=== PATIENT | female | born 1970 | race Hispanic/Latino ===

== ENCOUNTER → 2016-04-14 | Outpatient (CLI) | payer OTHER ==
[~2016-04-14] VITALS: Ht 154.9 cm; Wt 74.6 kg
[~2016-04-14] MED LIST: AMOX-358 PO; CEPH-507 PO; CODE-54 PO; DICL500C PO; DOCU-143 PO; FRS325T PO; HYDR-3062 PO; HYDR-3583 PO; IBP800T PO; LEVO125T6 PO; PREN-52; SULF1TAB35 PO
--- NOTE | 2016-04-14 14:57 | Diagnostic Imaging Report ---
Bilateral breast ultrasound. TECHNIQUE: All four quadrants and the retroareolar region were examined on this study. COMPARISON: 02/16/2016. INDICATION: Masses seen on breast MRI from 03/31/2016. Large masses are noted in the lower aspect of the left breast and relatively small mass and 9 mm mass in the lower outer aspect of the right breast seen. FINDINGS: In the left breast centered around 4 o'clock zone 3 cm from the nipple, there is a large complex lobulated mass that has no internal vascularity. The tissue around it has increased Doppler flow. The internal content of these lesions appears to fluctuate with ultrasound probe pressure compatible with fluid content and is concerning for multiple abscesses. No definitive solid-enhancing mass is seen in the left breast. The complex collections measure collectively about 6.4 x 4.3 x 6.8 cm. The right breast demonstrates no definite underlying lesion. In the axilla on the left side, there is a 2.6 x 1.1 x 1.8 cm lymph node with preserved fatty hilum. This is likely reactive. IMPRESSION: 1. Left breast: Multiple large complex lesions centered around 4 o'clock zone, favored to be related to abscesses. 2. Right breast: Negative exam. The mass seen in the middle depth of the lower outer aspect of the right breast on MRI was suspicious and MRI-guided biopsy is recommended. The findings were discussed with Dr. Elise by Dr. Downey at time of dictation. ACR BI-RADS Category 4: Suspicious abnormality. Dictated by: Dictated on workstation # [id number]
[2016-04-14 15:30] VITALS: BP 131/96
== END ==
LOC: RAD 13:05
PROVIDERS: ATTEND Surgery
DX: N61.1 Abscess of the breast and nipple (principal); N63 Unspecified lump in breast
CPT/HCPCS: 87081

== ENCOUNTER 2016-04-15 07:59 | Day surgery (SDC) | payer OTHER ==
[~2016-04-15] VITALS: Ht 154.9 cm; Wt 74.6 kg
[~2016-04-15 07:59] MED LIST changes: -AMOX-358 PO; -CEPH-507 PO; -DOCU-143 PO; -HYDR-3062 PO; -SULF1TAB35 PO
[2016-04-15] MEDS: LACTATED RINGERS 1,000 ML IV PRN ×2 (08:15→10:40)
[2016-04-15 08:33] VITALS: BP 121/85
[2016-04-15] MEDS ORDERED: LACTATED RINGERS 1,000 ML IV PRN (08:44)
[2016-04-15] MEDS ORDERED: ceFAZolin 2 GM IV (SDC ONLY) 50 ML ONE (09:30)
[2016-04-15] MEDS ORDERED: LIDOCAINE PF 2% 10 ML (XYLOCAINE) AMP ONE (09:42)
[2016-04-15] MEDS ORDERED: LACTATED RINGERS 1,000 ML IV ONE ×2 (09:42→10:36)
[2016-04-15] MEDS ORDERED: proPOfol 200 MG/20 ML (DIPRIVAN) VIAL IV ONE (09:42)
[2016-04-15] MEDS ORDERED: ONDANSETRON 4 MG/2 ML (SDV) Z0FRAN ONE (09:42)
[2016-04-15] MEDS ORDERED: MIDAZOLAM 2 MG/2 ML (VERSED) VIAL ONE (09:42)
[2016-04-15] MEDS ORDERED: fentaNYL INJECTION 100 MCG/2 ML AMP ONE (09:43)
[2016-04-15] MEDS ORDERED: ceFAZolin 2GM/50 ML DEXTROSE (PREMIX) IV ONE (10:00)
[2016-04-15] MEDS ORDERED: DEXAMETHASONE PF 10 MG/ML (DECADRON) VIAL ONE (10:06)
[2016-04-15] MEDS ORDERED: BUPIVACAINE 0.5% 30 ML (SENSORCAINE) VIAL ONE (10:18)
[2016-04-15] MEDS ORDERED: LIDOCAINE 1% INJ 20 ML (XYLOCAINE) VIAL ONE (10:18)
[2016-04-15] MEDS ORDERED: SEVOFLURANE (ULTANE) 15 ML INHAL SOLN ONE (10:41)
--- NOTE | 2016-04-15 10:47 | Progress Note-Post Operative ---
Post-Operative Progess Note Pre-Operative Diagnosis L breast abscess Post-Operative Diagnosis same Post-Op Procedure Note Date of Procedure: Apr 15, 2016 Name of Procedure: incision and drainage left breast with biopsy Procedure Note/Findings see note Anesthesia Type general Estimated blood loss (mL): minimal Specimen(s) collected left breast mass, culture GAURANG YADAV DO Apr 15, 2016 10:47 am
[2016-04-15] MEDS ORDERED: HYDR-3062 PO (10:54)
[2016-04-15] MEDS ORDERED: SULF1TAB35 PO (10:54)
[2016-04-15] MEDS ORDERED: DOCU-143 PO (10:55)
[2016-04-15] MEDS ORDERED: CEPH-507 PO (10:55)
--- NOTE | 2016-04-15 10:57 | Discharge Inst-Simple/Standard ---
Discharge Inst-Standard Discharge Medications New, Converted or Re-Newed RX: RX on Chart Patient Instructions/Follow Up Plan of Care/Instructions/FU: Follow up with Dr. Elise on Monday. Bring your iodoform packing with you. Return to surgery center on monday and monday to have wound packed. Take medication as directed. Activity as Tolerated: No Discharge Diet: No Restrictions Other Inst to Patient Follow up Appt: Make appointment for om Monday. Instructions: No lifting greater than 10 pounds. No strenuous activity. May shower in 24 hours, no tub bath or soaking. Use incentive spirometer at home as directed. No Smoking Skin/Wound Care: Return to the surgery center to have wound packed on Monday and Monday. Symptoms to Report: Appetite Changes, Extremity Discoloration, Numbness/Tingling, Swelling Increased , Bleeding Excessive, Eyesight Changes, Pain Increased, Urine Color Change, Constipation(Persistent), Fever over 101 degree F, Pain/Pressure in chest, Urinating Difficulty, Cough Up/Vomit Blood, Heart Beat Irreg/Pounding, Pain/ Pressure in jaw, Vaginal Bleeding Increase, Cramps in feet or legs, Lightheadedness, Pain/Pressure in shoulder, Diarrhea(Persistent), Memory Changes Suddenly, Questions/Concerns, Weight gain consecutive days, Dizziness/ Fainting, Nausea/Vomiting, Shortness of Breath, Weight gain over 2 pounds If questions or concerns contact your physician Or seek help at emergency department. NHAN MATHEWS APRN Apr 15, 2016 10:57
[2016-04-15] MEDS ORDERED: ONDANSETRON 4 MG/2 ML (SDV) Z0FRAN IVP PRN (11:00)
[2016-04-15] MEDS ORDERED: MEPERIDINE (DEMEROL) INJ 50 MG/ML IVP PRN (11:00)
[2016-04-15] MEDS ORDERED: HYDROmorphone (DILAUDID) 2 MG/ML VIAL IVP PRN (11:00)
[2016-04-15] MEDS: morphine INJ 10 MG/ML 1ML (SYR OR VIAL) IVP PRN ×2 (11:10→11:15)
[2016-04-15 11:50] VITALS: BP 141/102
[2016-04-15] MEDS ORDERED: HYDROcodone/APAP 5 MG/325 MG (LORTAB) TAB PO ONE (12:00)
[2016-04-15 12:20] VITALS: BP 127/84
[2016-04-15 12:50] VITALS: BP 129/86
[2016-04-15 13:10] VITALS: BP 129/86
--- NOTE | 2016-04-17 11:47 | OPERATIVE REPORT ---
PROCEDURE PHYSICIAN: GAURANG YADAV DATE OF PROCEDURE: 04/15/2016 PREOPERATIVE DIAGNOSIS: Left breast abscess POSTOPERATIVE DIAGNOSIS: Left breast abscess. PROCEDURE: Incision and drainage of left breast with biopsy. SURGEON: Gosia. ARCHITECT IN TRAINING: Ramesh Leggett ANESTHESIA: General. ESTIMATED BLOOD LOSS: Minimal. COMPLICATIONS: None. INDICATIONS: The patient is a 45-year-old female who has been worked up for left breast mass. She previously has had normal mammogram and ultrasound. She still had a large palpable mass, therefore MRI was performed, which demonstrated suspicious mass in the left breast. It was recommended the patient to have repeat ultrasound with possible biopsy. The patient went in for repeat ultrasound demonstrating a multiloculated fluid collection in the left breast. I discussed with Dr. Downey all radiological findings and he feels this is a complex abscess. I discuss with the family and patient risk and benefits of incision and drainage and all radiological findings. They understand and wish to proceed with incision and drainage. Consent was signed on chart for the procedure. PROCEDURE: The patient was taken operating suite. She was prepped and draped in the sterile fashion. A surgical pause was performed. Just inferior to the areolar, over the mass a skin incision was made and a large amount of purulent material erupted. A culture was obtained. There were loculations which with cautery and blunt dissection, these loculations were broken up. There is still a significant amount of indurated tissue present within this area. Some areas of extreme hardness which biopsies were obtained. Hemostasis was achieved. Copious amounts of irrigation were used to irrigate the wound. The wound was then packed with iodoform gauze. The area was then washed dried and sterile bandage was applied. The patient tolerated procedure well without any complications. RECOMMENDATIONS: We will continue wound care. She will be placed on Bactrim and Keflex. We will await cultures to modify antibiotics. The patient with questionable lesion of the right breast as well which MRI biopsy is being arranged. Instructions were provided to the patient on how to further arrange this. Job ID: [id number] Dictated Date: 04/15/2016 11:08:55 Landing Man Date: 04/17/2016 11:37:18 / andi
== END 2016-04-15 13:10 | disposition home or self-care (01) ==
LOC: SDC 07:59
PROVIDERS: ATTEND Surgery
DX: N61.1 Abscess of the breast and nipple (principal)
CPT/HCPCS: 87070; 87075; 87205; 94664

== ENCOUNTER 2016-04-17 07:57 | Outpatient (RCR) | payer OTHER ==
--- OUTSIDE RECORDS SUMMARY | 2016-04-16 08:14 | XMS REPORT | Continuity of Care Document ---
Author Author [facility] Organization [facility] Address Unknown Phone Unavailable Care Team Providers Care Psychiatric Lpn Name Role Phone JAZMIN OCONNOR DO PCP Insurance Providers Payer Name Policy Number Subscriber Name Relationship Self Pay Pending [facility] Apprv [id number] Isai Interiano 18 Self / Same As Patient Advance Directives Directive Response Recorded Date/Time Advance Directives No 04/15/16 8:29am Health Care Power of Car Conditioner No 04/15/16 8:29am Organ Donor No 04/15/16 8:29am Resuscitation Status Full Code 04/15/16 8:29am Problems No problem information available. Medications Current Home Medications Medication Dose Units Route Directions Days/Qty Instructions Start Date Levothyroxine Sodium 125 Mcg 125 Mcg Oral Daily 04/14/16 Sulfamethoxazole/Trimethoprim 1 Each 1 Each Oral Twice A Day 20 Hydrocodone/Acetaminophen 1 Each 1 Each Oral [id number] as needed for Pain 30 04/15/16 Docusate Sodium 100 Mg 100 Mg Oral Twice A Day 60 04/15/16 Cephalexin 500 Mg 500 Mg Oral Three Times A Day 30 04/15/16 Past Home Medications Medication Directions Ordered Status Vit 15/Iron Cb/Fa/Dss 1 Each Tablet, 09/29/08 Discontinued Acetaminophen/Codeine Phosphate 1 Tab Tablet, 1 Tab Oral As Needed 10/08/08 Discontinued Ferrous Sulfate 325 Mg Tablet, 1 Tab Oral Twice A Day 09/25/11 Discontinued Ibuprofen 800 Mg Tablet, 1 Each Oral Three Times A Day as needed 09/25/11 Discontinued Dicloxacillin Sodium 500 Mg Capsule, 1 Each Oral Four Times Daily 11/07/11 Discontinued Acetaminophen/Hydrocodone Bitart 1 Tab Tab, 1 - 2 Ea Oral Q4hr Prn 11/07/11 Discontinued Social History Social History Problem Response Recorded Date/Time Alcohol Use Denies Use 04/15/2016 8:29am Recreational Drug Use No 04/15/2016 8:29am Recent Foreign Travel No 04/15/2016 8:32am Sexually Transmitted Disease No 04/15/2016 8:29am HIV/AIDS No 04/15/2016 8:29am Smoking Status Never a Smoker 04/15/2016 8:29am Recent Hopitalizations No 04/15/2016 8:29am Sexually Transmitted Disease No 04/15/2016 8:29am Query Response Start Date Stop Date Smoking Status Never a Smoker Hospital Discharge Instructions Patient Instructions Physician Instructions New, Converted or Re-Newed RX: RX on Chart Plan of Care/Instructions/FU: Follow up with Dr. Yadav on Monday. Bring your iodoform packing with you. Return to surgery center on monday and monday to have wound packed. Take medication as directed. Activity as Tolerated: No Discharge Diet: No Restrictions Other Inst to Patient Follow up Appt: Make appointment for om Monday. Instructions: No lifting greater than 10 pounds. No strenuous activity. May shower in 24 hours, no tub bath or soaking. Use incentive spirometer at home as directed. No Smoking Skin/Wound Care: Return to the surgery center to have wound packed on Monday and Monday. Symptoms to Report: Appetite Changes, Extremity Discoloration, Numbness/Tingling, Swelling Increased, Bleeding Excessive, Eyesight Changes, Pain Increased, Urine Color Change, Constipation(Persistent), Fever over 101 degree F, Pain/Pressure in chest, Urinating Difficulty, Cough Up/Vomit Blood, Heart Beat Irreg/Pounding, Pain/Pressure in jaw, Vaginal Bleeding Increase, Cramps in feet or legs, Lightheadedness, Pain/Pressure in shoulder, Diarrhea(Persistent), Memory Changes Suddenly, Questions/Concerns, Weight gain consecutive days, Dizziness/Fainting, Nausea/Vomiting, Shortness of Breath, Weight gain over 2 pounds If questions or concerns contact your physician Or seek help at emergency department. Care Plan Patient Instructions:: Follow up with Dr. Yadav on Monday. Bring your iodoform packing with you.Return to surgery center on monday and monday to have wound packed. Take medication as directed. Plan of Care Discharge Date 04/15/16 1:10pm Instructions/Education Provided ANESTHESIA INSTRUCTIONS POSTOP Prescriptions See Medication Section Functional Status No functional status results. Allergies, Adverse Reactions, Alerts No known allergies. Immunizations No immunization records. Vital Signs Acute Vital Signs Vital Response Date/Time Temperature (Fahrenheit) 98.1 degrees F (97.6 - 99.5) 04/15/2016 1:10pm Temperature (Calculated Celsius) 36.30316 degrees C (36.4 - 37.5) 04/15/2016 12:50pm Temperature Source Tympanic 04/15/2016 1:10pm Pulse Rate (adult) 115 bpm (60 - 90) 04/15/2016 1:10pm Respiratory Rate 16 bpm (12 - 24) 04/15/2016 1:10pm O2 Sat by Pulse Oximetry 94 % (88 - 100) 04/15/2016 1:10pm Blood Pressure 129/86 mm Hg 04/15/2016 1:10pm Blood Pressure Mean 97 mm Hg 04/15/2016 8:33am Pain Numeric Pain Scale 6 04/15/2016 1:10pm Pain Intensity 6 04/15/2016 12:50pm Height (Feet) 5 feet 04/15/2016 8:31am Height (Inches) 1.00 inches 04/15/2016 8:31am Height (Calculated Centimeters) 154.192402 cm 04/15/2016 8:31am Weight (Pounds) 164 pounds 04/15/2016 8:31am Weight (Ounces) 6.0 oz 04/15/2016 8:31am Weight (Calculated Grams) 83103.25 gm 04/15/2016 8:31am Weight (Calculated Kilograms) 74.233981 kilograms 04/15/2016 8:31am Calculated BMI 31.1 04/15/2016 8:31am Results No known relevant diagnostic tests, laboratory data and/or discharge summary. Procedures Procedure Status Date Provider(s) Incision and drainage Completed 04/15/16 GAURANG YADAV DO Encounters Encounter Location Arrival/Admit Date Discharge/Depart Date Attending Provider Departed Surgical Day [facility] 01/13/17 7:59am 1:10pm GAURANG YADAV DO Registered Clinic [facility] 04/14/16 1:05pm GAURANG YADAV DO Registered Clinic [facility] 03/31/16 10:17am GAURANG YADAV DO
[2016-04-16 08:31] VITALS: BP 122/76
[~2016-04-17] VITALS: Ht 154.9 cm; Wt 74.6 kg
[~2016-04-17 07:57] MED LIST changes: +CEPH-507 PO; +DOCU-143 PO; +HYDR-3062 PO; +SULF1TAB35 PO
[2016-04-17 08:15] VITALS: BP 116/81
[2016-05-05] MEDS ORDERED: AMOX-358 PO (11:10)
[2016-05-05] MEDS ORDERED: HYDR-3062 PO (11:10)
== END 2016-07-15 | disposition home or self-care (01) ==
LOC: SDC 07:57
PROVIDERS: ATTEND Surgery
DX: Z48.01 Encounter for change or removal of surgical wound dressing (principal); N61.1 Abscess of the breast and nipple
CPT/HCPCS: 99211

== ENCOUNTER 2016-05-04 15:55 | Outpatient (CLI) | payer OTHER ==
[~2016-05-04] VITALS: Ht 154.9 cm; Wt 74.6 kg
[~2016-05-04 15:55] MED LIST changes: -AMOX-358 PO
--- OUTSIDE RECORDS SUMMARY | 2016-05-04 15:57 | XMS REPORT | Continuity of Care Document ---
Author Author [facility] Organization [facility] Address Unknown Phone Unavailable Care Team Providers Care Tobacco Blender Name Role Phone JAZMIN OCONNOR DO PCP Insurance Providers Payer Name Policy Number Subscriber Name Relationship Self Pay Pending [facility] Apprv [id number] Isai Interiano 18 Self / Same As Patient Advance Directives Directive Response Recorded Date/Time Advance Directives No 04/15/16 8:29am Health Care Power of Wrapping Clerk No 04/15/16 8:29am Organ Donor No 04/15/16 8:29am Resuscitation Status Full Code 04/15/16 8:29am Problems No problem information available. Medications Current Home Medications Medication Dose Units Route Directions Days/Qty Instructions Start Date Levothyroxine Sodium 125 Mcg 125 Mcg Oral Daily 04/14/16 Sulfamethoxazole/Trimethoprim 1 Each 1 Each Oral Twice A Day 20 Hydrocodone/Acetaminophen 1 Each 1 Each Oral [id number] as needed for Pain 30 04/15/16 Docusate [...] - 99.5) 04/15/2016 1:10pm Temperature (Calculated Celsius) 36.65711 degrees C (36.4 - 37.5) 04/15/2016 12:50pm [...] 1.00 inches 04/15/2016 8:31am Height (Calculated Centimeters) 154.650457 cm 04/15/2016 8:31am Weight (Pounds) 164 pounds 04/15/2016 8:31am Weight (Ounces) 6.0 oz 04/15/2016 8:31am Weight (Calculated Grams) 66425.25 gm 04/15/2016 8:31am Weight (Calculated Kilograms) 74.812301 kilograms 04/15/2016 8:31am Calculated BMI 31.1 04/15/2016 8:31am Results No known relevant diagnostic tests, laboratory data and/or discharge summary. Procedures Procedure Status Date Provider(s) Incision and drainage Completed 04/15/16 GAURANG YADAV DO Encounters Encounter Location Arrival/Admit Date Discharge/Depart Date Attending Provider Departed Surgical Day Care [facility] 01/13/17 7:59am 1:10pm GAURANG YADAV DO Registered Clinic [facility] 04/14/16 1:05pm GAURANG YADAV DO Registered Clinic [facility] 03/31/16 10:17am GAURANG YADAV DO
[2016-05-05] MEDS ORDERED: HYDR-3062 PO (11:10)
[2016-05-05] MEDS ORDERED: AMOX-358 PO (11:10)
== END 2016-05-04 16:05 ==
LOC: PREOP 15:55
PROVIDERS: ATTEND Surgery
DX: Z01.818 Encounter for other preprocedural examination (principal); N61.1 Abscess of the breast and nipple

== ENCOUNTER → 2016-05-04 | Outpatient (CLI) | payer OTHER ==
[~2016-05-04] MED LIST changes: +AMOX-358 PO
--- OUTSIDE RECORDS SUMMARY | 2016-05-04 13:41 | XMS REPORT | Continuity of Care Document ---
Author Author [facility] Organization [facility] Address Unknown Phone Unavailable Care Team Providers Care Streaming Media Specialist Name Role Phone JAZMIN OCONNOR DO PCP Insurance Providers Payer Name Policy Number Subscriber Name Relationship Self Pay Pending [facility] Apprv [id number] Isai Interiano 18 Self / Same As Patient Advance Directives Directive Response Recorded Date/Time Advance Directives No 04/15/16 8:29am Health Care Power of Continuous Pickling Line Pickler No 04/15/16 8:29am Organ Donor No 04/15/16 8:29am Resuscitation Status Full Code 04/15/16 8:29am Problems No problem information available. Medications Current Home Medications Medication Dose Units Route Directions Days/Qty Instructions Start Date Levothyroxine Sodium 125 Mcg 125 Mcg Oral Daily 04/14/16 Sulfamethoxazole/Trimethoprim 1 Each 1 Each Oral Twice A Day 20 Hydrocodone/Acetaminophen 1 Each 1 Each Oral [id number] as needed for Pain 30 04/15/16 Docusate [...] - 99.5) 04/15/2016 1:10pm Temperature (Calculated Celsius) 36.00221 degrees C (36.4 - 37.5) 04/15/2016 12:50pm [...] 1.00 inches 04/15/2016 8:31am Height (Calculated Centimeters) 154.813474 cm 04/15/2016 8:31am Weight (Pounds) 164 pounds 04/15/2016 8:31am Weight (Ounces) 6.0 oz 04/15/2016 8:31am Weight (Calculated Grams) 55626.25 gm 04/15/2016 8:31am Weight (Calculated Kilograms) 74.008251 kilograms 04/15/2016 8:31am Calculated BMI 31.1 04/15/2016 8:31am Results No known relevant diagnostic tests, laboratory data and/or discharge summary. Procedures Procedure Status Date Provider(s) Incision and drainage Completed 04/15/16 GAURANG YADAV DO Encounters Encounter Location Arrival/Admit Date Discharge/Depart Date Attending Provider Departed Surgical Day [facility] 01/13/17 7:59am 1:10pm GAURANG YADAV DO Registered Clinic [facility] 04/14/16 1:05pm GAURANG YADAV DO Registered Clinic [facility] 03/31/16 10:17am GAURANG YADAV DO
--- NOTE | 2016-05-04 14:20 | Diagnostic Imaging Report ---
EXAMINATION: Left breast ultrasound. INDICATION: Followup abscess. FINDINGS: At the 5:00 zone, 5 cm from the nipple there is a lobulated collection measuring 2.4 x 1.5 x 1.5 CM with surrounding hyperemia. At the 4:00 zone 6 cm from the nipple there is another fluid pocket measuring 2.4 x 1.4 x 1.7 CM. This is an improvement compared to a study from 04/14/2016. IMPRESSION: Significant improvement in the left breast abscess with the remaining 2 pockets of fluid seen at this point at 4 and 5:00 position as described. Dictated by: Dictated on workstation # [id number]
== END ==
LOC: RAD 13:38
PROVIDERS: ATTEND Surgery
DX: N61.1 Abscess of the breast and nipple (principal)
CPT/HCPCS: 76642

== ENCOUNTER 2016-05-05 06:18 | Day surgery (SDC) | payer OTHER ==
[~2016-05-05] VITALS: Ht 154.9 cm; Wt 74.6 kg
--- OUTSIDE RECORDS SUMMARY | 2016-05-05 06:22 | XMS REPORT | Continuity of Care Document ---
Author Author [facility] Organization [facility] Address Unknown Phone Unavailable Care Team Providers Care Cafeteria Monitor Name Role Phone JAZMIN OCONNOR DO PCP Insurance Providers Payer Name Policy Number Subscriber Name Relationship Self Pay Approved [employer] [id number] Isai Interiano 18 Self / Same As Patient Advance Directives Directive Response Recorded Date/Time Advance Directives No 05/04/16 3:59pm Health Care Power of Tip Fixer No 05/04/16 3:59pm Organ Donor No 05/04/16 3:59pm Resuscitation Status Full Code 05/04/16 3:59pm Problems No problem information available. Medications Current Home Medications Medication Dose Units Route Directions Days/Qty Instructions Start Date Levothyroxine Sodium 125 Mcg 125 Mcg Oral Daily 04/14/16 Sulfamethoxazole/Trimethoprim 1 Each 1 Each Oral Twice A Day 20 Hydrocodone/Acetaminophen 1 Each 1 Each Oral [id number] as needed for Pain 30 04/15/16 Docusate [...] Response Recorded Date/Time Alcohol Use Denies Use 05/04/2016 3:59pm Recreational Drug Use No 05/04/2016 3:59pm Recent Foreign Travel No 05/04/2016 3:58pm Recent Infectious Disease Exposure No 05/04/2016 3:58pm Sexually Transmitted Disease No 05/04/2016 3:59pm HIV/AIDS No 05/04/2016 3:59pm Smoking Status Never a Smoker 05/04/2016 3:59pm Recent Hopitalizations No 05/04/2016 3:59pm Sexually Transmitted Disease No 05/04/2016 3:59pm Query Response Start Date Stop Date Smoking Status Never a Smoker Hospital Discharge Instructions No hospital discharge instructions. Plan of Care Discharge Date 05/04/16 4:05pm Prescriptions See Medication Section Functional Status No functional status results. Allergies, Adverse Reactions, Alerts No known allergies. Immunizations No immunization records. Vital Signs Acute Vital Signs Vital Response Date/Time Temperature (Fahrenheit) 98.4 degrees F (97.6 - 99.5) 04/17/2016 8:15am Temperature (Calculated Celsius) 36.86779 degrees C (36.4 - 37.5) 04/17/2016 8:15am Temperature Source Tympanic 04/17/2016 8:15am Pulse Rate (adult) 80 bpm (60 - 90) 04/17/2016 8:15am Respiratory Rate 18 bpm (12 - 24) 04/17/2016 8:15am O2 Sat by Pulse Oximetry 94 % (88 - 100) 04/15/2016 1:10pm Blood Pressure 116/81 mm Hg 04/17/2016 8:15am Blood Pressure Mean 93 mm Hg 04/17/2016 8:15am Pain Numeric Pain Scale 5-Moderate Pain 04/17/2016 8:15am Pain Intensity 6 04/15/2016 12:50pm Height (Feet) 5 feet 05/04/2016 3:58pm Height (Inches) 1.00 inches 05/04/2016 3:58pm Height (Calculated Centimeters) 154.777506 cm 05/04/2016 3:58pm Weight (Pounds) 164 pounds 05/04/2016 3:58pm Weight (Ounces) 6.0 oz 05/04/2016 3:58pm Weight (Calculated Grams) 76735.25 gm 05/04/2016 3:58pm Weight (Calculated Kilograms) 74.945956 kilograms 05/04/2016 3:58pm Calculated BMI 31.1 05/04/2016 3:58pm Capillary Refill Capillary Refill Less Than 3 Seconds 04/17/2016 8:15am Results Microbiology Results Procedure Source Result Collection Date/Time Result Date/Time MRSA Screen Nasal MRSA not isolated 04/14/2016 1:30pm 04/15/2016 3:56pm Pending Microbiology Results Procedure Source Collection Date/Time Procedures Procedure Status Date Provider(s) INCISION OF BREAST LESION Completed 04/15/16 GAURANG YADAV DO Encounters Encounter Location Arrival/Admit Date Discharge/Depart Date Attending Provider Departed Clinic [facility] 05/04/16 3:55pm 05/04/16 4: 05pm GAURANG YADAV DO Registered Clinic [facility] 05/04/16 1:38pm GAURANG YADAV DO Registered Recurring [facility] 04/17/16 7:57am GAURANG YADAV DO Departed Surgical Day Care [facility] 04/15/16 7:59am 1:10pm GAURANG YADAV DO Registered Clinic [facility] 04/14/16 1:05pm GAURANG YADAV DO
--- OUTSIDE RECORDS SUMMARY | 2016-05-05 06:23 | XMS REPORT | Continuity of Care Document ---
Author Author [facility] Organization [facility] Address Unknown Phone Unavailable Care Team Providers Care Beveler Name Role Phone JAZMIN OCONNOR DO PCP Insurance Providers Payer Name Policy Number Subscriber Name Relationship Self Pay Approved [employer] [id number] Isai Interiano 18 Self / Same As Patient Advance Directives Directive Response Recorded Date/Time Advance Directives No 05/04/16 3:59pm Health Care Power of Stitching Machine Operator No 05/04/16 3:59pm Organ Donor No 05/04/16 3:59pm Resuscitation Status Full Code 05/04/16 3:59pm Problems No problem information available. Medications Current Home Medications Medication Dose Units Route Directions Days/Qty Instructions Start Date Levothyroxine Sodium 125 Mcg 125 Mcg Oral Daily 04/14/16 Sulfamethoxazole/Trimethoprim 1 Each 1 Each Oral Twice A Day 20 Hydrocodone/Acetaminophen 1 Each 1 Each Oral [id number] as needed for Pain 30 04/15/16 Docusate [...] - 99.5) 04/17/2016 8:15am Temperature (Calculated Celsius) 36.88480 degrees C (36.4 - 37.5) 04/17/2016 8:15am [...] 1.00 inches 05/04/2016 3:58pm Height (Calculated Centimeters) 154.329905 cm 05/04/2016 3:58pm Weight (Pounds) 164 pounds 05/04/2016 3:58pm Weight (Ounces) 6.0 oz 05/04/2016 3:58pm Weight (Calculated Grams) 28983.25 gm 05/04/2016 3:58pm Weight (Calculated Kilograms) 74.356335 kilograms 05/04/2016 3:58pm Calculated BMI 31.1 05/04/2016 [...] Discharge/Depart Date Attending Provider Departed Clinic [facility] 05/04/16 3:55pm 05/04/16 4: 05pm GAURANG YADAV DO Registered Clinic [facility] 05/04/16 1:38pm GAURANG YADAV DO Registered Recurring [facility] 04/17/16 7:57am GAURANG YADAV DO Departed Surgical Day Care [facility] 04/15/16 7:59am 1:10pm GAURANG YADAV DO Registered Clinic [facility] 04/14/16 1:05pm GAURANG YADAV DO
[2016-05-05] MEDS: LACTATED RINGERS 1,000 ML IV PRN ×2 (06:35→08:35)
[2016-05-05 06:40] VITALS: BP 123/81
[2016-05-05] MEDS ORDERED: ONDANSETRON 4 MG/2 ML (SDV) Z0FRAN ONE (07:07)
[2016-05-05] MEDS ORDERED: DEXAMETHASONE PF 10 MG/ML (DECADRON) VIAL ONE (07:07)
[2016-05-05] MEDS ORDERED: proPOfol 200 MG/20 ML (DIPRIVAN) VIAL IV ONE (07:08)
[2016-05-05] MEDS ORDERED: fentaNYL INJECTION 100 MCG/2 ML AMP ONE (07:08)
[2016-05-05] MEDS ORDERED: MIDAZOLAM 2 MG/2 ML (VERSED) VIAL ONE (07:08)
[2016-05-05] MEDS ORDERED: LACTATED RINGERS 1,000 ML IV ONE (07:08)
[2016-05-05] MEDS ORDERED: LIDOCAINE 1% INJ 20 ML (XYLOCAINE) VIAL ONE (07:27)
[2016-05-05] MEDS ORDERED: BUPIVACAINE 0.5% 30 ML (SENSORCAINE) VIAL ONE (07:27)
[2016-05-05] MEDS ORDERED: ceFAZolin 1,000 MG (ANCEF) VIAL ONE (07:50)
[2016-05-05] MEDS ORDERED: SEVOFLURANE (ULTANE) 15 ML INHAL SOLN ONE (08:33)
[2016-05-05] MEDS: morphine INJ 10 MG/ML 1ML (SYR OR VIAL) IV PRN ×2 (08:56→09:06)
[2016-05-05] MEDS ORDERED: ONDANSETRON 4 MG/2 ML (SDV) Z0FRAN IV PRN (09:00)
[2016-05-05] MEDS ORDERED: ceFAZolin 2 GM/50 ML NS 50 ML IV ONE (09:00)
--- NOTE | 2016-05-05 09:02 | Progress Note-Pre Operative ---
Pre-Operative Progress Note H&P Reviewed The H&P was reviewed, patient examined and no changes noted. Date H&P Reviewed: May 05, 2016 Time H&P Reviewed: 07:30 Pre-Operative Diagnosis: left breast abscess GAURANG YADAV DO May 05, 2016 09:02
--- NOTE | 2016-05-05 09:03 | Progress Note-Post Operative ---
Post-Operative Progess Note Pre-Operative Diagnosis left breast abscess Post-Operative Diagnosis same cystic hard breast Post-Op Procedure Note Date of Procedure: May 05, 2016 Name of Procedure: incision and drainage left breast with debridement [id number] Procedure Note/Findings see note Anesthesia Type general Estimated blood loss (mL): minimal Specimen(s) collected left breast tissue and cultures GAURANG YADAV DO May 05, 2016 09:03
[2016-05-05 09:30] VITALS: BP 127/85
[2016-05-05] MEDS ORDERED: HYDROcodone/APAP 5 MG/325 MG (LORTAB) TAB PO PRN (09:35)
[2016-05-05] MEDS ORDERED: HYDROcodone/APAP 5 MG/325 MG (LORTAB) TAB ONE (09:38)
[2016-05-05 10:00] VITALS: BP 122/84
[2016-05-05 10:30] VITALS: BP 115/85
[2016-05-05] MEDS ORDERED: HYDROcodone/APAP 5 MG/325 MG (LORTAB) TAB PO ONE (11:00)
[2016-05-05] MEDS ORDERED: HYDR-3062 PO (11:10)
[2016-05-05] MEDS ORDERED: AMOX-358 PO (11:10)
--- NOTE | 2016-05-09 08:24 | OPERATIVE REPORT ---
PROCEDURE PHYSICIAN: GAURANG ELISE DATE OF PROCEDURE: 05/05/2016 PREOPERATIVE DIAGNOSIS: Left breast abscess. POSTOPERATIVE DIAGNOSIS: Left breast abscess. PROCEDURE: Incision and drainage and debridement of 8.4 x 4 cm area. SURGEON: Dr. Elise. ANESTHESIA: General. ESTIMATED BLOOD LOSS: Minimal. COMPLICATIONS: None. INDICATIONS: The patient is a 45-year-old female who had previous incision and drainage left breast abscess. The patient has had a repeat ultrasound demonstrating some fluid collections of the left breast still present. Her wound is fairly healed as well from previous incision and drainage. The patient was discussed the risk and benefits of performing incision and drainage again along with debridement. She understands the risks and benefits and wished to proceed with procedure. Consent was signed on the chart. PROCEDURE: The patient was taken operating suite. She was prepped and draped in sterile fashion. A surgical pause was performed. The left breast from the previous incision was opened again and also extending up. There was a lot of hard dense tissue also with some purulent material present. Cultures were obtained. The cautery was then used to insert, dissect and a bride the hard tissue out. One area demonstrating what appears to be more of a closed cystic duct collection, which was continued to be dissected out with cautery dissection. There is some subcutaneous collections as well which were connect from the inside of the cavity which were opened and drained. A previous incision that was made was also dissected down through and opened up into the main cavity and a [place] drain was placed through it. There were some areas that appeared to be more hard cystic breast changes which were dissected around as well and removed. The overall debridement measured times 8 x 4 x 4 cm. A Mena drain was placed through the small skin incision made towards the middle portion of the breast. Hemostasis had been achieved. The wound was irrigated with copious amounts of irrigation. The drain was secured with drain suture. The wound was then packed with one-inch iodoform gauze and sterile bandage was applied. The patient tolerated the procedure well without any complications. She was taken recovery room in stable condition. Job ID: [id number] Dictated Date: 05/05/2016 14:36:58 [facility] Center Manager Date: 05/09/2016 08:13:58 / vianca MANSFIELD
== END 2016-05-05 11:16 | disposition home or self-care (01) ==
LOC: SDC 06:18
PROVIDERS: ATTEND Surgery
DX: N61.1 Abscess of the breast and nipple (principal)
CPT/HCPCS: 84703; 87070; 87075; 87081; 87205; 88305; 88312

== ENCOUNTER 2016-06-24 08:20 | Outpatient (RCR) | payer SELFPAY ==
--- OUTSIDE RECORDS SUMMARY | 2016-05-18 09:34 | XMS REPORT | Continuity of Care Document ---
Author Author [facility] Organization [facility] Address Unknown Phone Unavailable Care Team Providers Care Displayer Merchandise Name Role Phone JAZMIN OCONNOR DO PCP Insurance Providers Payer Name Policy Number Subscriber Name Relationship Self Pay Approved Full Trinity [id number] Isai Interiano 18 Self / Same As Patient Advance Directives Directive Response Recorded Date/Time Advance Directives No 05/04/16 3:59pm Health Care Power of Business Development No 05/04/16 3:59pm Organ Donor No 05/04/16 3:59pm Resuscitation Status Full Code 05/04/16 3:59pm Problems No problem information available. Medications Current Home Medications Medication Dose Units Route Directions Days/Qty Instructions Start Date Levothyroxine Sodium 125 Mcg 125 Mcg Oral Daily 04/14/16 Sulfamethoxazole/Trimethoprim 1 Each 1 Each Oral Twice A Day 20 Hydrocodone/Acetaminophen 1 Each 1 Each Oral [id number] as needed for Pain 30 04/15/16 Docusate [...] - 99.5) 04/17/2016 8:15am Temperature (Calculated Celsius) 36.77524 degrees C (36.4 - 37.5) 04/17/2016 8:15am [...] 1.00 inches 05/04/2016 3:58pm Height (Calculated Centimeters) 154.599403 cm 05/04/2016 3:58pm Weight (Pounds) 164 pounds 05/04/2016 3:58pm Weight (Ounces) 6.0 oz 05/04/2016 3:58pm Weight (Calculated Grams) 84816.25 gm 05/04/2016 3:58pm Weight (Calculated Kilograms) 74.351320 kilograms 05/04/2016 3:58pm Calculated BMI 31.1 05/04/2016 [...] Discharge/Depart Date Attending Provider Departed Clinic [facility] 05/04/16 3:55pm 05/04/16 4: 05pm GAURANG YADAV DO Registered Clinic [facility] 05/04/16 1:38pm GAURANG YADAV DO Registered Recurring [facility] 04/17/16 7:57am GAURANG YADAV DO Departed [facility] 04/15/16 7:59am 1:10pm GAURANG YADAV DO Registered Clinic [facility] 04/14/16 1:05pm GAURANG YADAV DO
[~2016-06-24 08:20] MED LIST changes: +AMOX-358 PO
== END 2016-06-24 16:00 | disposition home or self-care (01) ==
LOC: WOUNDCARE 08:20
PROVIDERS: ATTEND Surgery
DX: L02.213 Cutaneous abscess of chest wall (principal); S21.002A Unspecified open wound of left breast, initial encounter
CPT/HCPCS: 97605; 99212; 99213

== ENCOUNTER 2019-05-10 10:53 | Emergency (ER) | payer OTHER ==
[~2019-05-10] VITALS: Ht 165.1 cm; Wt 72.7 kg
--- NOTE | 2019-05-10 11:32 | ED Cough/URI ---
General Chief Complaint: Cough/Cold/Flu Symptoms Stated Complaint: COUGH;FEVER Nursing Triage Note: PT AMB TO TRIAGE WITH COMPLAINT OF COUGH, CONGESTION, CHEST AND BACK PAIN FOR A WEEK. Sepsis Screen: No Definite Risk Source: patient Exam Limitations: no limitations History of Present Illness Date Seen by Provider: May 10, 2019 Time Seen by Provider: 11:31 Initial Comments Coughing congestion chest and back pain for a week Timing/Duration: just prior to arrival Severity/Quality: productive cough Associated Symptoms: cough Allergies and Home Medications Allergies Coded Allergies: No Known Drug Allergies (Unverified , 04/14/16) Home Medications Amoxicillin/Potassium Clav 1 Each Tablet, 1 EACH PO BID Prescribed by: NHAN SU on 05/05/16 1110 Cephalexin 500 Mg Capsule, 500 MG PO TID Prescribed by: NHAN SU on 04/15/16 1055 Docusate Sodium 100 Mg Capsule, 100 MG PO BID Prescribed by: NHAN SU on 04/15/16 1055 Hydrocodone/Acetaminophen 1 Each Tablet, 1 EACH PO [id number] PRN for PAIN Prescribed by: NHAN SU on 04/15/16 1054 Hydrocodone/Acetaminophen 1 Each Tablet, 1 EACH PO q4-6hr Prescribed by: NHAN SU on 05/05/16 1110 Levothyroxine Sodium 125 Mcg Tablet, 125 MCG PO DAILY, (Reported) Sulfamethoxazole/Trimethoprim 1 Each Tablet, 1 EACH PO BID Prescribed by: NHAN SU on 04/15/16 1054 Patient Home Medication List Home Medication List Reviewed: Yes Review of Systems Review of Systems Constitutional: see HPI, chills EENTM: see HPI Respiratory: see HPI Cardiovascular: no symptoms reported Genitourinary: no symptoms reported Musculoskeletal: no symptoms reported Skin: no symptoms reported Psychiatric/Neurological: No Symptoms Reported Hematologic/Lymphatic: No Symptoms Reported Past Wlruwvr-Tlgzcr-Xethly Hx Patient Social History Alcohol Use: Denies Use Recreational Drug Use: No Smoking Status: Never a Smoker Recent Foreign Travel: No Contact w/Someone Who Travel: No Recent Infectious Disease Expo: No Recent Hopitalizations: No Immunizations Up To Date Tetanus Booster (TDap): Unknown PED Vaccines UTD: Yes Date of Influenza Vaccine: Jan 01, 2011 Seasonal Allergies Seasonal Allergies: No Past Medical History Surgeries: Yes (BREAST ABSCESS 2011, I&D LEFT BREAST 04/2016) Appendectomy, Hysterectomy Respiratory: No Cardiac: No Neurological: No Reproductive Disorders: No CONCIERGE History: Hysterectomy Sexually Transmitted Disease: No HIV/AIDS: No Gastrointestinal: No Musculoskeletal: No Endocrine: Yes Hypothyroidsim Loss of Vision: Denies Hearing Impairment: Denies Cancer: No Psychosocial: No Integumentary: No Blood Disorders: No Adverse Reaction/Blood Tranf: No Physical Exam Vital Signs - First Documented Capillary Refill : Less Than 3 Seconds Height: 5'1.00" Weight: 164lbs. 6.0oz. 74.774067wr; 26.00 BMI Method:Stated General Appearance: WD/WN, no apparent distress Eyes: Bilateral Eye Normal Inspection, Bilateral Eye PERRL, Bilateral Eye EOMI (gone back for) HEENT: PERRL/EOMI, normal ENT inspection Respiratory: normal breath sounds, no respiratory distress, no accessory muscle use, decreased breath sounds ( E digits clock and now) Gastrointestinal: normal bowel sounds, non tender, soft Neurologic/Psychiatric: alert, normal mood/affect, oriented x 3 Skin: normal color, warm/dry Progress/Results/Core Measures Suspected Sepsis Recent Fever Within 48 Hours: No Infection Criteria Present: None New/Unexplained Altered Menta: No Sepsis Screen: No Definite Risk SIRS Temperature: Pulse: 111 Respiratory Rate: 22 Blood Pressure 102 /71 Mean: 81 Results/Orders Micro Results Microbiology 05/10/19 Influenza Types A,B Antigen ([facility]) - Final, Complete My Orders Orders - YUE ANDERSEN APRN Influenza A And B Antigens (05/10/19 11:01) Chest Pa/Lat (2 View) (05/10/19 11:38) Vital Signs/I&O 05/10/19 05/10/19 11:10 11:10 Temp 37.6 Pulse 111 Resp 22 B/P (MAP) 102/71 (81) Pulse Ox 96 O2 Delivery Room Air Room Air Capillary Refill : Less Than 3 Seconds Blood Pressure Mean: 81 Departure Impression Primary Impression: Influenza Disposition: 01 HOME, SELF-CARE Condition: Stable Departure-Patient Inst. Decision time for Depature: 11:31 Referrals: SOLEDAD BUSTILLOS APRN (PCP) Primary Care Physician JAZMIN OCONNOR DO (Family) Primary Care Physician Patient Instructions: Flu, Adult (DC) Add. Discharge Instructions: 1. Return to ER for any concerns 2. Tylenol and ibuprofen for pain and fever control. All discharge instructions reviewed with patient and/or family. Voiced understanding. Scripts Acetaminophen with Codeine (Tylenol with Codeine #3 Tablet) 1 Each Tablet 1 EACH PO Q4H PRN for COUGH for 7 Days, #10 TAB Prov: YUE ANDERSEN APRN 05/10/19 YUE ANDERSEN APRN May 10, 2019 11:32
[2019-05-10] MEDS ORDERED: ACET-789 PO (12:20)
[2019-05-10 12:26] VITALS: BP 102/71
--- NOTE | 2019-05-10 13:10 | Diagnostic Imaging Report ---
INDICATION: Cough and fever. TIME OF EXAMINATION: 11:58 AM. COMPARISON: No prior studies are available for comparison. FINDINGS: The heart size is normal. The pulmonary vascularity is unremarkable. The lungs are clear. No infiltrate, effusion, or pneumothorax is detected. IMPRESSION: No acute cardiopulmonary process is detected. Dictated by: Dictated on workstation # [id number]
== END 2019-05-10 12:26 | disposition home or self-care (01) ==
LOC: EDUNIT# 10:53 → ER 10:54
DX: J11.1 Influenza due to unidentified influenza virus with other respiratory manifestations (principal); E03.9 Hypothyroidism, unspecified
CPT/HCPCS: 71046; 87804

== ENCOUNTER → 2020-12-17 | Outpatient (CLI) | payer BC ==
[~2020-12-17] VITALS: Ht 154.9 cm; Wt 77.6 kg
[~2020-12-17] MED LIST changes: +ACET-789 PO; +ACHD5005 PO; +ESTR2TAB PO; -HYDR-3062 PO; +LEVO175T58 PO; -SULF1TAB35 PO; +SULF1TAB38 PO
== END | disposition home or self-care (01) ==
LOC: PREOP 07:08
PROVIDERS: ATTEND Surgery
DX: Z01.818 Encounter for other preprocedural examination (principal)

== ENCOUNTER 2020-12-29 10:29 | Day surgery (SDC) | payer BC ==
[~2020-12-29] VITALS: Ht 154.9 cm; Wt 77.6 kg
[2020-12-29] MEDS ORDERED: LACTATED RINGERS 1,000 ML IV ONE (10:36)
[2020-12-29 10:40] VITALS: BP 122/79
[2020-12-29] MEDS ORDERED: MIDAZOLAM 2 MG/2 ML (VERSED) VIAL ONE (10:51)
[2020-12-29] MEDS ORDERED: PROPOFOL INJECTION 50 ML IV ONE (10:52)
--- NOTE | 2020-12-29 10:56 | Progress Note-Pre Operative ---
Pre-Operative Progress Note H&P Reviewed The H&P was reviewed, patient examined and no changes noted. Date Seen by Provider: Dec 29, 2020 Time Seen by Provider: 10:55 Date H&P Reviewed: Dec 29, 2020 Time H&P Reviewed: 10:55 Pre-Operative Diagnosis: screening colonoscopy GAURANG YADAV DO Dec 29, 2020 10:56
[2020-12-29 11:15] VITALS: BP 113/67
--- NOTE | 2020-12-29 11:18 | Progress Note-Post Operative ---
Post-Operative Progess Note Surgeon (s)/Manager Competitive Intelligence (s) Surgeon GAURANG YADAV DO Manager Competitive Intelligence: na Pre-Operative Diagnosis screening colonoscopy Post-Operative Diagnosis Incomplete colonscopy - poor bowel prep Procedure & Operative Findings Date of Procedure 12/29/20 Procedure Performed/Findings Flex sigmoidoscopy Anesthesia Type per jig bore operator Estimated Blood Loss Estimated blood loss (mL): none Specimens/Packing Specimens Removed none GAURANG YADAV DO Dec 29, 2020 11:18
[2020-12-29 11:20] VITALS: BP 110/66
--- NOTE | 2020-12-29 11:21 | Discharge Inst-Simple/Standard ---
Discharge Inst-Standard Patient Instructions/Follow Up Plan of Care/Instructions/FU: Repeat colonoscopy tomorrow. CLear liquids and repeat prep instructions today. If not able to do this appointment at office to discuss 2 day prep and further instructions. Activity as Tolerated: Yes Discharge Diet: Liquid Diet (clear.) GAURANG YADAV DO Dec 29, 2020 11:21
[2020-12-29 11:25] VITALS: BP 108/70
[2020-12-29 11:30] VITALS: BP 119/76
[2020-12-29 11:58] VITALS: BP 119/76
--- NOTE | 2020-12-29 14:35 | Anesthesia-General Post-Op ---
MAC Patient Condition Mental Status/LOC: Same as Preop Cardiovascular: Satisfactory Nausea/Vomiting: Absent Respiratory: Satisfactory Pain: Controlled Complications: Absent Post Op Complications Complications None Follow Up Care/Instructions Patient Instructions None needed. Anesthesiology Discharge Order Discharge Order Patient is doing well, no complaints, stable vital signs, no apparent adverse anesthesia problems. No complications reported per nursing. LAURA VELEZ CRNA Dec 29, 2020 14:35
--- NOTE | 2020-12-29 17:17 | OPERATIVE REPORT ---
DATE OF SERVICE: 12/29/2020 PREOPERATIVE DIAGNOSIS: Screening colonoscopy. POSTOPERATIVE DIAGNOSIS: Poor prep. PROCEDURE PERFORMED: Flexible sigmoidoscopy. SURGEON: Gaurang Elise DO. ANESTHESIA: Per CORPORATE DIRECTOR OF PHARMACY. ESTIMATED BLOOD LOSS: None. COMPLICATIONS: None. INDICATIONS FOR PROCEDURE: The patient is a 50-year-old female undergoing screening colonoscopy. She understands the risks and benefits of the procedure and wished to proceed with the procedure. Consent was signed in the chart. DESCRIPTION OF PROCEDURE: The patient was taken to the endoscopy suite and placed in left lateral recumbent position. Timeout was performed. Digital rectal exam was performed. There were no palpable polyps, masses or ulcerations. Scope was inserted in the rectum and advanced through the rectum and sigmoid colon, encountered a very small amount of stool within the descending colon, but once into the transverse colon, a significant stool burden was present. Scope was then continuously advanced, but due to the overall stool burden, unsafe to continue. Scope was then slowly retracted back. No polyps, masses or ulcerations were visualized within the descending, sigmoid and rectum, but with overall poor visualization. Scope was slowly retracted back until completely removed. The patient tolerated the procedure well without any complications. We will either re-prep today and plan on colonoscopy tomorrow or we will reschedule and plan a two-day prep. CC: Bill Andersen - requested, unable to deliver Job ID: [id number] DocumentID: [id number] Dictated Date: 12/29/2020 11:25:00 Cylinder Press Operator Date: 12/29/2020 17:17:22 Dictated By: GAURANG ELISE DO
== END 2020-12-29 12:00 | disposition home or self-care (01) ==
LOC: ENDO 10:29
PROVIDERS: ATTEND Surgery
DX: Z12.11 Encounter for screening for malignant neoplasm of colon (principal); E07.9 Disorder of thyroid, unspecified; Z79.890 Hormone replacement therapy

== ENCOUNTER 2020-12-30 06:42 | Day surgery (SDC) | payer BC ==
[2020-12-30] VITALS (8 sets, daily range): BP systolic 94–124; BP diastolic 60–83
[~2020-12-30] VITALS: Ht 154.9 cm; Wt 77.6 kg
[2020-12-30] MEDS ORDERED: LACTATED RINGERS 1,000 ML IV STA (06:59)
[2020-12-30] MEDS ORDERED: MIDAZOLAM 2 MG/2 ML (VERSED) VIAL ONE (07:13)
[2020-12-30] MEDS ORDERED: PROPOFOL INJECTION 50 ML IV ONE (07:13)
--- NOTE | 2020-12-30 07:28 | Progress Note-Pre Operative ---
Pre-Operative Progress Note H&P Reviewed The H&P was reviewed, patient examined and no changes noted. Date Seen by Provider: Dec 30, 2020 Time Seen by Provider: 07:28 Date H&P Reviewed: Dec 30, 2020 Time H&P Reviewed: 07:28 Pre-Operative Diagnosis: screening colonoscopy GAURANG YADAV DO Dec 30, 2020 07:28
--- NOTE | 2020-12-30 07:55 | Discharge Inst-Simple/Standard ---
Discharge Inst-Standard Patient Instructions/Follow Up Plan of Care/Instructions/FU: Gosia for 10 year repeat colonoscopy unless family history of colon cancer which would be 5 years. Any issues before that be seen at that time. Activity as Tolerated: Yes Discharge Diet: Regular Diet GAURANG YADAV DO Dec 30, 2020 07:54
--- NOTE | 2020-12-30 07:56 | Progress Note-Post Operative ---
Post-Operative Progess Note Surgeon (s)/Fish Packer (s) Surgeon GAURANG YADAV DO Fish Packer: na Pre-Operative Diagnosis screening colonoscopy Post-Operative Diagnosis normal colon Procedure & Operative Findings Date of Procedure 12/30/20 Procedure Performed/Findings colonoscopy Anesthesia Type per solar sales Estimated Blood Loss Estimated blood loss (mL): none Specimens/Packing Specimens Removed na GAURANG YADAV DO Dec 30, 2020 07:56
--- NOTE | 2020-12-30 12:59 | Anesthesia-General Post-Op ---
MAC Patient Condition Mental Status/LOC: Same as Preop Cardiovascular: Satisfactory Nausea/Vomiting: Absent Respiratory: Satisfactory Pain: Controlled Complications: Absent Post Op Complications Complications None Follow Up Care/Instructions Patient Instructions None needed. Anesthesiology Discharge Order Discharge Order Patient is doing well, no complaints, stable vital signs, no apparent adverse anesthesia problems. No complications reported per nursing. LAURA VELEZ CRNA Dec 30, 2020 12:59
--- NOTE | 2020-12-30 14:02 | OPERATIVE REPORT ---
DATE OF SERVICE: PREOPERATIVE DIAGNOSIS: Screening colonoscopy. POSTOPERATIVE DIAGNOSIS: Normal colon. PROCEDURE PERFORMED: Colonoscopy. SURGEON: Gaurang Elise DO. ANESTHESIA: Per DINKEY MECHANIC. ESTIMATED BLOOD LOSS: None. COMPLICATIONS: None. INDICATIONS FOR PROCEDURE: The patient is a 50-year-old female needing screening colonoscopy. She understands risks and benefits of the procedure and wished to proceed with the procedure. Consent was signed in the chart. DESCRIPTION OF PROCEDURE: The patient was taken to the endoscopy suite and placed in a left lateral recumbent position. Timeout was performed. Digital rectal exam was performed. There were no palpable polyps, masses or ulcerations. Some internal hemorrhoids were present. Scope was inserted into the rectum. A small amount of stool load was present, which was able to be irrigated and suctioned without difficulty. Scope was then advanced all the way to the cecum with minimal difficulty. Prep was adequate. Scope was then slowly retracted back. No polyps, masses or ulcerations within the cecum, ascending, transverse, descending and sigmoid colon. Once in the rectum, scope was retroflexed noting internal hemorrhoids. Scope was returned to its normal position, slowly withdrawn until completely removed. The patient tolerated the procedure well without any complications. She was taken to the recovery room in a stable condition. RECOMMENDATIONS: The patient will need repeat colonoscopy in 10 years unless family history of colon cancer, which will then be five years. Any issues before that be seen at that time. CC: Dr. Sanchez - requested, unable to deliver. Job ID: [id number] DocumentID: [id number] Dictated Date: 12/30/2020 07:58:34 Mains And Service Supervisor Date: 12/30/2020 14:01:17 Dictated By: GAURANG ELISE DO
== END 2020-12-30 08:40 | disposition home or self-care (01) ==
LOC: ENDO 06:42
PROVIDERS: ATTEND Surgery
DX: Z12.11 Encounter for screening for malignant neoplasm of colon (principal); E07.9 Disorder of thyroid, unspecified; Z79.890 Hormone replacement therapy

== ENCOUNTER → 2022-01-27 | Outpatient (CLI) | payer BC ==
[~2022-01-27] MED LIST changes: -ESTR2TAB PO; +ESTR2TAB3 PO
[2022-01-27 10:40] VITALS: BP 149/98
--- NOTE | 2022-01-28 16:18 | Cardiology Stress Test Report ---
TREADMILL STRESS TEST Date of procedure: 01/27/2022. Primary care provider: Ruth Sanchez DO. Admitting physician: Kervin Blackmon Jr., MD. INDICATION: Abnormal electrocardiogram. BASELINE ELECTROCARDIOGRAM: Sinus rhythm with left atrial abnormality and nonspecific T wave changes. STRESS TEST PROCEDURE: The patient was exercised for a total of 4 minutes and 20 seconds of the standard Jose protocol achieving a maximum MET level of 6.2. The resting heart rate was 91 bpm and the peak heart rate was 148 bpm, which represents 88% of the maximum predicted heart rate. The resting blood pressure was 142/77 mmHg and the peak blood pressure was 171/99 mmHg. This represents a normal heart rate and a normal blood pressure response to exercise. The test was stopped due to target heart rate attained. There was no chest discomfort during the test. There were no arrhythmias during the test. There were no significant stress induced electrocardiogram changes. The patient exhibited fair exercise capacity for age. IMPRESSION: 1. Normal heart rate and blood pressure response to exercise. 2. There was no exercise-induced chest discomfort, arrhythmias, or electrocardiogram changes during the test. 3. The patient exhibited fair exercise capacity for age at 4 minutes and 20 seconds of the Jose protocol. 4. This is an unremarkable treadmill stress test. Certain portions of this document may have been dictated utilizing voice recognition technology. Inherent to this technology, typographical and grammatical errors may exist. As much as I am diligent to identify and correct these mistakes, some errors may remain in the document. KERVIN BLACKMON JR, MD Jan 28, 2022 16:18
== END ==
LOC: CARD 10:17
PROVIDERS: ATTEND Internal Medicine Cardiovascular Disease
DX: R94.31 Abnormal electrocardiogram [ECG] [EKG] (principal)
CPT/HCPCS: 93017